=== PATIENT | male | born 1980 | race Caucasian/White ===

== ENCOUNTER 2016-09-11 08:13 | Emergency (ER) | payer OTHER, MEDICAID ==
[2016-09-11 08:20] VITALS: RESP 18; O2SAT 95
[2016-09-11] MEDS ORDERED: NS 1,000 ML IV ONE (08:45)
[2016-09-11 08:48] LABS: ADD DIFF? YES; ADD MORPH? NO; ADD SCAN? NO; ATYPICAL LYMPHOCYTE FLAG 0 (0-99); FRAGMENT RBC FLAG 0 (0-99); HEMATOCRIT 46.8 % (40.0-51.0); HEMOGLOBIN 15.9 g/dL (13.7-17.5); LEFT SHIFT FLG 0 (0-99); LIPEMIA HEMOLYSIS FLAG 90 (0-99); MEAN CELL HEMOGLOBIN 30.9 pg (27.9-34.1); MEAN CELL VOLUME 90.9 fL (81.5-99.8); PLATELET CLUMPS FLAG 10 (0-99); PLATELET COUNT 169 10^3/uL (150-400); RED BLOOD CELL COUNT 5.15 10^6/uL (4.40-6.38); RED CELL DISTRIBUTION WIDTH 12.2 % (11.5-15.2)
--- NOTE | 2016-09-11 08:51 | EDPHY ---
H & P Stated Complaint: r uq abd pain/constipation(is on supplements per chiropractor) Time Seen by Provider: 09/11/16 08:48 HPI/ROS: HPI: 35-year-old male presents to emergency department with chief concern abdominal pain. Reports onset of intermittent mid abdominal discomfort 9 days ago associated with 2 days of 4 episodes of diarrhea. Reports intermittent diarrhea and constipation since that time. Last night develops 10/10 mid abdominal discomfort associated with nausea. Pain is 3/10 now. No nausea now. Denies fever, chills, myalgias, URI symptoms, shortness of breath, chest pain , vomiting, urinary symptoms, back or flank pain. Currently under treatment by a chiropractor carbide operator" Dr. Mayen of [facility] in [place] for suspected, not confirmed, gluten sensitivity. Past medical history includes Kinsborn Syndrome and constipation. No recent antibiotic use. No recent travel. No recent infections. ROS:10 point review of systems is negative other than as stated in HPI Source: Patient Exam Limitations: No limitations - Personal History Current Tetanus/Diphtheria Vaccine: Yes Tetanus Vaccine Date: within 10 years - Medical/Surgical History Hx Asthma: No Hx Chronic Respiratory Disease: No Hx Diabetes: No Hx Cardiac Disease: No Hx Renal Disease: No Hx Cirrhosis: No Hx Alcoholism: No Hx HIV/AIDS: No Hx Splenectomy or Spleen Trauma: No Other PMH: Kinsborn syndrome - Family History Significant Family History: Other (Mother has gluten sensitivity) - Social History Smoking Status: Never smoked Alcohol Use: None Drug Use: None Additional Social History: Lives with mother - Physical Exam Exam: Vital signs stable, reviewed by me General: Awake, alert, calm, cooperative. No acute distress. Head: Normalocephalic. Atraumatic. EENT: PERRLA. EOMI. No pallor or injection. Anicteric. No nystagmus. No injection. TMs intact bilaterally with normal landmarks. No rhinnorhea, nasal passages clear. Oropharynx without redness, exudates, or lesions. Tonsils 2+ bilaterally, no exudates. Neck: Supple, nontender. No lymphadenopathy. Full range of motion. No meningismus. Respiratory: Breathing unlabored. Breath sounds equal bilaterally and clear to auscultation. No adventitious sounds. CV: Chest nontender, atraumatic. Heart rate regular. No murmur, distal pulses 2+ bilaterally. Brisk cap refill all extremities. GI: Abdomen soft, mid abdominal pain across entire abdomen. No guarding. No rebound. No right lower quadrant pain, no left upper quadrant pain, no left lower quadrant pain. Bowel sounds normoactive and positive x4 quadrants. : No suprapubic tenderness. No CVA or flank tenderness. Neuro: Alert. Oriented x 3. Speech clear. Nonfocal cranial nerves throughout. Sensation intact all extremities. Skin: Skin warm, dry, intact. No rashes, abrasions, or lacerations. Skin turgor normal. Extremities: Full range of motion in all 4 extremities. Strength 5+ all extremities. Constitutional: Initial Vital Signs Temperature (C) 36.5 C 09/11/16 08:16 Heart Rate 73 09/11/16 08:16 Respiratory Rate 18 09/11/16 08:16 Blood Pressure 132/83 H 09/11/16 08:16 O2 Sat (%) 95 09/11/16 08:16 O2 Delivery Mode Room Air Allergies/Adverse Reactions: No Known Allergies Allergy (Verified 09/11/16 08:15) Home Medications: Medication Instructions Recorded Supplements 09/11/16 Medical Decision Making - Diagnostics Imaging: Abdomen, 2 views, 843 a.m. History: Abdominal pain, possible obstruction or constipation Comparison: None Findings: There is scattered fecal material in a nondilated colon that may represent constipation. There is a short segment of possibly edematous small bowel in the left flank, overlying the left iliac crest. No free air is identified. There are no significant air-fluid levels. There are no dilated loops. 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 Impression: Possible abnormal loop of small bowel in the left flank. Results called to Deborah Fletcher at 924 a.m. Dictated By: Kaz Head MD CT Scan of the Abdomen and Pelvis (With Contrast) , 1013 a.m. Clinical Indications: Diffuse abdominal pain, possible abnormal loop of small bowel in the left flank seen on abdominal x-rays earlier at 843 a.m. Technique: 90 mL of Isovue 300 were given intravenously by machine power injection. Multidetector helical CT imaging was performed from the diaphragm to the symphysis pubis. Dose reduction techniques were utilized. Findings: Abdomen: Correlating to the finding on the plain films is a mildly conspicuous loop of small bowel in the left flank with mild submucosal mucosal edema. Is normal contrast filling of the celiac axis , superior mesenteric artery and vein and inferior mesenteric artery. The splenic vein and portal veins are normal as are the hepatic veins. The abdominal aorta is normal in size without evidence of dissection. The lung bases are clear, and there is no pleural fluid. Heart size is normal without pericardial effusion. The patient has a mild pectus excavatum deformity, which does not significantly compress the right ventricle. The liver, spleen, kidneys, adrenal glands, pancreas and retroperitoneum look normal. There is no evidence of a bowel obstruction. There is no free air. Pelvis: There is a small amount of pelvic free fluid. There is a normal vermiform appendix. I do not identify a pelvic abscess. The urinary bladder is unremarkable. No masses are identified. Bowel loops are normal. No evidence for pelvic abscess. Impression: Mildly abnormal loop of jejunum in the left flank. I suspect this is the source of the small amount of free fluid in the pelvis. ED Course/Re-evaluation: 0850: 35-year-old male presents to emergency department with abdominal pain. Has a history of constipation. Afebrile. Vitals are stable. Pain is 3/10 without nausea presently. Patient requests pain medication. Given 2 mg IV morphine. Normal saline hung. Labs and urine pending. Upright abdomen pending. 0910: CBC unremarkable. Basic metabolic panel unremarkable. LFTs and lipase are negative. Urinalysis negative. Upright abdomen 0935: Pain 1/10. Due to possible abnormal loop of bowel in the left flank as seen on x-ray, CT abdomen pelvis ordered to rule out ischemia. Differential Diagnosis: Differential diagnosis includes but is not limited to in no particular order constipation, irritable bowel syndrome, gluten sensitivity, lactose intolerance , appendicitis, UTI, cholecystitis, gastroenteritis, dyspepsia - Data Points Laboratory Results: Laboratory Results 09/11/16 08:35 09/11/16 08:35 09/11/16 09/11/16 08:50 08:35 WBC 6.40 10^3/uL (3.80-9.50) RBC 5.15 10^6/uL (4.40-6.38) Hgb 15.9 g/dL (13.7-17.5) Hct 46.8 % (40.0-51.0) MCV 90.9 fL (81.5-99.8) MCH 30.9 pg (27.9-34.1) MCHC 34.0 g/dL (32.4-36.7) RDW 12.2 % (11.5-15.2) Plt Count 169 10^3/uL (150-400) MPV 9.0 fL (8.7-11.7) Neut % (Auto) Not Reported Lymph % (Auto) Not Reported [place] % (Auto) Not Reported Eos % (Auto) Not Reported Baso % (Auto) Not Reported Nucleat RBC Rel Count 0.0 % (0.0-0.2) Absolute Neuts (auto) Not Reported Absolute Lymphs (auto) Not Reported Absolute Monos (auto) Not Reported Absolute Eos (auto) Not Reported Absolute Basos (auto) Not Reported Absolute Nucleated RBC 0.00 10^3/uL (0-0.01) Immature Gran % Not Reported Seg Neutrophils % 47 % Band Neutrophils % 5 % Lymphocytes % 19 % Monocytes % 8 % Eosinophils % 21 % Immature Gran # Not Reported Absolute Seg Neuts 3.01 10^/uL (1.70-6.50) Absolute Band Neuts 0.32 10^3/uL (0.00-0.70) Absolute Lymphocytes 1.22 10^3/uL (1.00-3.00) Absolute Monocytes 0.51 10^3/uL (0.30-0.80) Absolute Eosinophils 1.34 H 10^3/uL (0.03-0.40) RBC/WBC/PLT Morphology NORMAL (NORMAL) Atypical Lymphocytes 1+ H Platelet Estimate ADEQUATE (ADEQ) Smear Review By Pending Sodium 142 mEq/L (134-144) Potassium 4.8 mEq/L (3.5-5.2) Chloride 104 mEq/L (97-110) Carbon Dioxide 26 mEq/l (22-31) Anion Gap 12 mEq/L (8-16) BUN 22 mg/dL (7-23) Creatinine 0.9 mg/dL (0.7-1.3) Estimated GFR > 60 Glucose 95 mg/dL (70-100) Calcium 9.6 mg/dL (8.5-10.4) Total Bilirubin 0.7 mg/dL (0.1-1.4) Conjugated Bilirubin 0.4 mg/dL (0.0-0.5) Unconjugated Bilirubin 0.3 mg/dL (0.0-1.1) AST 26 IU/L (17-59) ALT 51 IU/L (21-72) Alkaline Phosphatase 79 IU/L (38-126) Total Protein 7.3 g/dL (6.3-8.2) Albumin 4.4 g/dL (3.5-5.0) Lipase 142.0 IU/L (23-300) Urine Color YELLOW Urine Appearance HAZY Urine pH 5.0 (5.0-7.5) Ur Specific [place] 1.027 (1.002-1.030) Urine Protein NEGATIVE (NEGATIVE) Urine Ketones NEGATIVE (NEGATIVE) Urine Blood NEGATIVE (NEGATIVE) Urine Nitrate NEGATIVE (NEGATIVE) Urine Bilirubin NEGATIVE (NEGATIVE) Urine Urobilinogen NEGATIVE EU (0.2-1.0) Ur Leukocyte Esterase NEGATIVE (NEGATIVE) Urine Glucose NEGATIVE (NEGATIVE) Medications Given: Discontinued Medications Sodium Chloride (Ns) 1,000 mls @ 0 mls/hr IV ONCE ONE PRN Reason: Wide Open Stop: 09/11/16 08:46 Last Admin: 09/11/16 08:56 Dose: 1,000 mls Morphine Sulfate (Morphine) 2 mg IVP EDNOW ONE Stop: 09/11/16 08:46 Last Admin: 09/11/16 08:56 Dose: 2 mg Departure - Departure Clinical Impression: Abdominal pain Condition: Good Instructions: Acute Abdominal Pain (ED), Constipation (ED) Additional Instructions: Plan: Follow up on Tuesday or Tuesday for recheck without fail--When you call to schedule appointment, please let the office know you are an "ER follow up" appointment" If pain worsens, you develop a fever, you developed nausea or vomiting please return promptly for recheck to the emergency department [id number] magnesium citrate as directed on the bottle as a laxative to relieve constipation For a stool softener, [id number] ducosate sodium (colace) 1 pill once daily while symptoms persist Get established with a primary care provider who can manage constipation Referrals: [place],. [Primary Care Provider] - As per Instructions Gema Black RN, PLUMBER APPRENTICE [Certified Nurse Practioner] - As per Instructions Adrian Pineda MD [Medical Doctor] - As per Instructions
[2016-09-11 08:58] LABS: COLOR YELLOW; LEUKOCYTE ESTERASE,URINE NEGATIVE (NEGATIVE); NITRITE,URINE NEGATIVE (NEGATIVE)
[2016-09-11 09:14] LABS: ALANINE AMINOTRANSFERASE 51 IU/L (21-72); ALBUMIN 4.4 g/dL (3.5-5.0); ALKALINE PHOSPHATASE 79 IU/L (38-126); ANION GAP 12 mEq/L (8-16); ASPARTATE AMINOTRANSFERASE 26 IU/L (17-59); BILIRUBIN,TOTAL 0.7 mg/dL (0.1-1.4); BILIRUBIN-CONJUGATED 0.4 mg/dL (0.0-0.5); BILIRUBIN-UNCONJUGATED 0.3 mg/dL (0.0-1.1); CALCIUM 9.6 mg/dL (8.5-10.4); CARBON DIOXIDE 26 mEq/l (22-31); CHLORIDE 104 mEq/L (97-110); CREATININE 0.9 mg/dL (0.7-1.3); GLOMERULAR FILTRATION RATE > 60; GLUCOSE 95 mg/dL (70-100); POTASSIUM 4.8 mEq/L (3.5-5.2); SODIUM 142 mEq/L (134-144); TOTAL PROTEIN 7.3 g/dL (6.3-8.2)
[2016-09-11 09:28] LABS: PLATELET ESTIMATE ADEQUATE (ADEQ)
--- NOTE | 2016-09-11 09:29 | DX ---
Abdomen, 2 views, 843 a.m. History: Abdominal pain, possible obstruction or constipation Comparison: None Findings: There is scattered fecal material in a nondilated colon that may represent constipation. Th ere is a short segment of possibly edematous small bowel in the left flank, overlying the left iliac crest. No free air is identified. There are no significant air-fluid levels. There are no dilated loo ps. 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 Impression: Possible abnormal loop of small bowel in the left flank. Results called to Deborah Fletcher at 924 a.m.
[2016-09-11] MEDS ORDERED: IOPAMIDOL (ISOVUE-300) 100 ML BTL IV ONE (10:22)
--- NOTE | 2016-09-11 11:11 | CT ---
CT Scan of the Abdomen and Pelvis (With Contrast) , 1013 a.m. Clinical Indications: Diffuse abdominal pain, possible abnormal loop of small bowel in the left flan k seen on abdominal x-rays earlier at 843 a.m. Technique: 90 mL of Isovue 300 were given intravenously by machine power injection. Multidetector he lical CT imaging was performed from the diaphragm to the symphysis pubis. Dose reduction techniques w ere utilized. Findings: Abdomen: Correlating to the finding on the plain films is a mildly conspicuous loop of small bowel in the left flank with mild submucosal mucosal edema. Is normal contrast filling of the celiac axis, khan perior mesenteric artery and vein and inferior mesenteric artery. The splenic vein and portal veins a re normal as are the hepatic veins. The abdominal aorta is normal in size without evidence of dissect ion. The lung bases are clear, and there is no pleural fluid. Heart size is normal without pericardial eff usion. The patient has a mild pectus excavatum deformity, which does not significantly compress the r ight ventricle. The liver, spleen, kidneys, adrenal glands, pancreas and retroperitoneum look normal. There is no evidence of a bowel obstruction. There is no free air. Pelvis: There is a small amount of pelvic free fluid. There is a normal vermiform appendix. I do not identify a pelvic abscess. The urinary bladder is unremarkable. No masses are identified. Bowel loo ps are normal. No evidence for pelvic abscess. Impression: Mildly abnormal loop of jejunum in the left flank. I suspect this is the source of the sm all amount of free fluid in the pelvis. Results communicated to Deborah Fletcher. General information for patients regarding this examination can be found at [email or web address]. If you have questions or comments about this report, please contact me at [phone] (hospital) or [phone] (cell).
[2016-09-11 11:24] VITALS: BP 133/64; PULSE 82; TEMP 98.2
== END 2016-09-11 11:33 | disposition home or self-care (01) ==
DX: R10.9 Unspecified abdominal pain (principal); R19.7 Diarrhea, unspecified; R11.0 Nausea
CPT/HCPCS: 74000; 74177; 96361; 96374; 99285; Q9967